=== PATIENT | female | born 1940 | race Caucasian/White ===

== ENCOUNTER 2017-07-10 11:20 | Inpatient (IN) | payer MEDICARE, BC ==
[~2017-07-10 11:20] MED LIST: BUPIVACAINE 0.25%/EPI (MDV) 50 ML VIAL INJ
[2017-07-10] MEDS ORDERED: CEFAZOLIN 2 GM/50 ML (PMX) 50 ML IVPB (13:00)
[2017-07-10] MEDS ORDERED: LACTATED RINGER'S 1,000 ML IV* (13:00)
[2017-07-10] MEDS ORDERED: MIDAZOLAM 1 MG/ML 2 ML INJ (14:08)
[2017-07-10] MEDS: GELATIN SIZE 100 SPONGE (15:06)
[2017-07-10] MEDS: THROMBIN 5000 UNIT VIAL (15:08)
[2017-07-10] MEDS: POLYMYXIN/BACITRACIN 1L IRRIG (15:09)
[2017-07-10] MEDS: HEMOSTATIC MATRIX SYG ZFS (15:09)
[2017-07-10] MEDS: BETAMET NA PHOS/AC(6 MG/ML) 5ML INJ (16:50)
[2017-07-10] MEDS: BUPIVACAINE 0.25%/EPI (SDV) 30 ML INJ INJ (17:19)
[2017-07-10] MEDS ORDERED: PROCHLORPERAZINE 10 MG TAB PO (17:30)
[2017-07-10] MEDS ORDERED: NALOXONE (0.4 MG/ML) INJ IV (17:30)
[2017-07-10] MEDS ORDERED: ONDANSETRON 4 MG INJ IV ×2 (17:30→18:00)
[2017-07-10] MEDS ORDERED: NACL 0.9% 3 ML SYG IV (17:30)
[2017-07-10] MEDS ORDERED: ACETAMINOPHEN 325 MG TAB PO (17:30)
[2017-07-10] MEDS ORDERED: CEFAZOLIN 1 GM INJ (17:32)
[2017-07-10] MEDS ORDERED: LIDOCAINE 2% (SDV) 5 ML INJ (17:32)
[2017-07-10] MEDS ORDERED: ONDANSETRON 4 MG INJ (17:32)
[2017-07-10] MEDS ORDERED: PROPOFOL 20 ML (17:32)
[2017-07-10] MEDS ORDERED: ROCURONIUM 50 MG INJ (17:32)
[2017-07-10] MEDS ORDERED: MEPERIDINE 25 MG INJ IV (18:00)
[2017-07-10] MEDS ORDERED: METOCLOPRAMIDE 10 MG INJ IV (18:00)
[2017-07-10] MEDS ORDERED: FENTAnyl 50 MCG/ML VIAL IV (18:00)
[2017-07-10] MEDS ORDERED: HYDROmorphONE (0.2 MG/ML) 10ML SYG IV ×2 (18:00)
[2017-07-10] MEDS ORDERED: DIPHENHYDRAMINE 50 MG INJ IV (18:00)
[2017-07-10] MEDS ORDERED: LABETALOL HCL 20MG INJ IV (18:00)
[2017-07-10] MEDS: HYDROmorphONE 0.2 MG/ML PCA IV (18:31)
[2017-07-10] MEDS: hydrALAzine 20 MG INJ IV (18:50)
[2017-07-10] MEDS: ATORVASTATIN 10 MG TAB PO (20:14)
[2017-07-10] MEDS: PANTOPRAZOLE (EC) 40 MG TAB PO (20:14)
[2017-07-10] MEDS: CEFAZOLIN 1 GM/50 ML (PMX) 50 ML IVPB (20:15)
[2017-07-10] MEDS: METOPROLOL (XL) 25 MG TAB PO (20:15)
[2017-07-10] MEDS: oxyCODONE (CR) 10 MG TAB [oxyCONTIN] PO (21:33)
[2017-07-11] MEDS: CEFAZOLIN 1 GM/50 ML (PMX) 50 ML IVPB ×3 (02:19→14:22)
[2017-07-11 05:01] LABS: HEMATOCRIT 29.4 % (37.0-47.0)
[2017-07-11 05:38] LABS: MAGNESIUM 1.6 mg/dl (1.7-2.5)
[2017-07-11 05:51] LABS: ANION GAP 6 (8-16); BLOOD UREA NITROGEN 17 mg/dl (7-20); CALCIUM 8.3 mg/dl (8.4-10.2); CARBON DIOXIDE 28 mmol/L (21-31); CHLORIDE 107 mmol/L (97-110); CREATININE 0.71 mg/dl (0.44-1.00); GLUCOSE 95 mg/dl (70-220); POTASSIUM 3.8 mmol/L (3.5-5.1); SODIUM 137 mmol/L (135-144)
[2017-07-11] MEDS: LEVOTHYROXINE 75 MCG TAB PO (07:04)
[2017-07-11] MEDS: OXYCODONE/ACETAMINOPHEN (10/325) TAB PO (08:45)
[2017-07-11] MEDS: BUPROPION (XL) 150 MG TAB PO (09:10)
[2017-07-11] MEDS: ESTRADIOL 1 MG TAB PO (09:10)
[2017-07-11] MEDS: VALACYCLOVIR 500 MG TAB PO (09:11)
[2017-07-11] MEDS: oxyCODONE (CR) 10 MG TAB [oxyCONTIN] PO (09:14)
== END 2017-07-11 15:21 | disposition home or self-care (01) | DRG 520 ==
LOC: REC 11:20 → MS1 19:50
PROVIDERS: Orthopaedic Surgery
PROC: 01NB0ZZ Release Lumbar Nerve, Open Approach (ICD-10-PCS; principal; 2017-07-10 12:30)
PROC: 00BY0ZZ Excision of Lumbar Spinal Cord, Open Approach (ICD-10-PCS; 2017-07-10 12:30)
DX: M48.07 Spinal stenosis, lumbosacral region (principal); M06.9 Rheumatoid arthritis, unspecified; I10 Essential (primary) hypertension; M48.061 Spinal stenosis, lumbar region without neurogenic claudication; E78.5 Hyperlipidemia, unspecified; M54.16 Radiculopathy, lumbar region; M71.38 Other bursal cyst, other site; E03.9 Hypothyroidism, unspecified; I25.2 Old myocardial infarction; F39 Unspecified mood [affective] disorder
CPT/HCPCS: 72100; 80048; 83735; 85014; 85018; 86850; 86900; 86901; 88304; 97163